=== PATIENT | female | born 1990 | race Caucasian/White ===

== ENCOUNTER 2017-07-27 19:25 | Emergency (ER) | payer MEDICAID ==
[~2017-07-27] VITALS: Ht 167.6 cm; Wt 87.7 kg
[~2017-07-27 19:25] MED LIST: MOTRIN 600600 MG/TAB PO; PERCOCET 325 MG1 TA2 PO; PRENATAL1 TA7 PO
[2017-07-27 19:29] VITALS: TEMP 98.1
[2017-07-27 21:09] VITALS: BP 111/81; PULSE 67
== END 2017-07-27 21:10 | disposition home or self-care (01) ==
LOC: COL.ER 19:25
DX: K21.9 Gastro-esophageal reflux disease without esophagitis (principal)

== ENCOUNTER 2018-09-08 16:11 | Emergency (ER) | payer MEDICAID ==
[~2018-09-08] VITALS: Ht 167.6 cm; Wt 87.1 kg
[2018-09-08 16:21] VITALS: BP 123/79; TEMP 98.1
[2018-09-08] MEDS ORDERED: [UNRECOGNIZED DRUG - REMARK] (16:43)
[2018-09-08 18:10] VITALS: PULSE 72
== END 2018-09-08 18:11 | disposition home or self-care (01) ==
LOC: COL.ER 16:11
DX: J11.1 Influenza due to unidentified influenza virus with other respiratory manifestations (principal); K21.9 Gastro-esophageal reflux disease without esophagitis

== ENCOUNTER 2018-09-11 10:41 | Emergency (ER) | payer MEDICAID ==
[~2018-09-11] VITALS: Ht 167.6 cm; Wt 86.8 kg
[~2018-09-11 10:41] MED LIST changes: +[UNRECOGNIZED DRUG - REMARK]
[2018-09-11 10:47] VITALS: TEMP 98.1
[2018-09-11] MEDS ORDERED: ADVIL200 MG PO (10:55)
[2018-09-11] MEDS ORDERED: TYLENOL 325MG325 MG PO (10:55)
[2018-09-11] MEDS ORDERED: PRILOSEC 20MG20 MG PO (10:56)
[2018-09-11] MEDS ORDERED: CARAFATE 1GM1 G PO (10:56)
[2018-09-11 13:06] VITALS: BP 118/74; PULSE 76
== END 2018-09-11 13:02 | disposition home or self-care (01) ==
LOC: COL.ER 10:41
DX: R51 Headache (principal); K21.9 Gastro-esophageal reflux disease without esophagitis; Z90.89 Acquired absence of other organs; Z98.890 Other specified postprocedural states
CPT/HCPCS: J1200; J1885; J2765; J7030

== ENCOUNTER 2019-07-28 18:57 | Outpatient (CLI) | payer MEDICAID ==
[~2019-07-28] VITALS: Ht 167.6 cm; Wt 105.0 kg
[~2019-07-28 18:57] MED LIST changes: +ADVIL200 MG PO; +CARAFATE 1GM1 G PO; +PRILOSEC 20MG20 MG PO; +TYLENOL 325MG325 MG PO
--- NOTE | 2019-07-28 19:00 | NUR ---
To unit for assessment of contractions, accompanied by spouse. Oriented to room, monitor plan of care.
[2019-07-28 20:20] VITALS: BP 119/78
--- NOTE | 2019-07-28 20:20 | NUR ---
Repeat SVE with no changes, no bloody show or loss of fluid. Exam discussed with pt and spouse. Off monitor.
--- NOTE | 2019-07-28 20:40 | NUR ---
discharge instructions reviewed with pt and spouse, questions invited and answered. Ambulatory off unit.
[2019-07-28 20:54] VITALS: BP 126/85; PULSE 92; TEMP 98.7
== END 2019-07-28 20:40 | disposition home or self-care (01) ==
LOC: LDRO 18:57
DX: O62.9 Abnormality of forces of labor, unspecified (principal); Z3A.36 36 weeks gestation of pregnancy

== ENCOUNTER 2019-08-17 05:26 | Inpatient (IN) | payer MEDICAID ==
[2019-08-17] VITALS (19 sets, daily range): BP systolic 102–151; BP diastolic 52–94; PULSE 64–103; TEMP 98–98.3
[~2019-08-17] VITALS: Ht 167.6 cm; Wt 106.4 kg
--- NOTE | 2019-08-17 05:35 | NUR ---
PT HERE FOR SECTION DELIVERY SCHEDULED FOR 729. ADMISSION PROCEEDURES STARTED. [facility] IVF. PERMITS. ORIENTED TO ROOM AND PLAN OF CARE
[2019-08-17 06:27] LABS: BASO % 0.4 % (0.0-2.0); EOS # 0.1 (0.0-0.7); EOS % 0.9 % (0-4.0); GRAN # 5.3 (1.4-6.5); GRAN % 65.5 % (42.2-75.2); LYMPH % 24.8 % (20.0-51.0); MEAN CELL VOLUME 85 fl (80.0-100.0); MEAN CORPUSCULAR HEMOGLOBIN 27 pg (27.0-31.0); MEAN CORPUSCULAR HGB CONC 32 g/dl (33.0-37.0); MEAN PLATELET VOLUME 10.2 fl (7.4-10.4); MONO # 0.6 (0.1-0.6); MONO % 7.5 % (1.7-9.3); PLATELET COUNT 199 K/mm3 (130-400); RED BLOOD COUNT 4.08 M/mm3 (4.10-5.30); REDCELL DISTRIBUTION WIDTH-CV 14.2 % (11.5-14.5)
[2019-08-17] MEDS ORDERED: PRENATA1 CTB PO (06:32)
[2019-08-17 06:40] LABS: HEMATOCRIT 34.5 % (37.0-47.0)
[2019-08-18 02:40] VITALS: BP 114/79; PULSE 70; TEMP 98.8
[2019-08-18 07:37] VITALS: BP 114/64; PULSE 76; TEMP 98.1
[2019-08-18] MEDS ORDERED: IBU600 MG PO (08:29)
[2019-08-18] MEDS ORDERED: PERCOCET 325 MG1 TA2 PO (08:30)
--- NOTE | 2019-08-18 11:18 | NUR ---
Initial visit; Parents and extended family thanked [facility] for offering congratulations and God's blessings for the of their daughter. [facility] thanked family for choosing [facility].
[2019-08-18 16:02] VITALS: BP 104/63; PULSE 76; TEMP 98.1
[2019-08-18 21:25] VITALS: BP 114/66; PULSE 86; TEMP 98.4
[2019-08-19 08:13] VITALS: BP 122/77; PULSE 85; TEMP 97.9
== END 2019-08-19 11:45 | disposition home or self-care (01) | DRG 788 ==
LOC: OB 05:26
PROVIDERS: ADMIT Obstetrics & Gynecology
PROC: 10D00Z1 Extraction of Products of Conception, Low, Open Approach (ICD-10-PCS; principal; 2019-08-17)
DX: O34.211 Maternal care for low transverse scar from previous cesarean delivery (principal); Z3A.39 39 weeks gestation of pregnancy; Z37.0 Single live birth; Z87.11 Personal history of peptic ulcer disease; Z90.49 Acquired absence of other specified parts of digestive tract; Z88.1 Allergy status to other antibiotic agents
CPT/HCPCS: J0690; J1885; J2370; J2405; J2590; J3010; J7120

== ENCOUNTER 2022-02-12 07:33 | Outpatient (CLI) | payer MEDICAID ==
[~2022-02-12] VITALS: Ht 167.6 cm; Wt 97.9 kg
[~2022-02-12 07:33] MED LIST changes: +IBU600 MG PO; +PRENATA1 CTB PO
[2022-02-12] MEDS ORDERED: EXCEDRIN1 TAB PO (08:09)
[2022-02-12 08:10] VITALS: BP 118/79; PULSE 66; TEMP 97.9
[2022-02-12 08:55] VITALS: BP 106/68; PULSE 66
[2022-02-12 09:20] LABS: GLUCOSE,CSF 63 mg/dL (40-70); TOTAL PROTEIN,CSF 22 mg/dL (15-45)
[2022-02-12 09:45] VITALS: BP 112/73; PULSE 81
[2022-02-12 10:20] LABS: CSF COLOR COLORLESS
[2022-02-12 10:21] LABS: CSF APPEARANCE CLEAR
[2022-02-12 10:27] LABS: CSF MONONUCLEAR 100 % (70-100); CSF POLYMORPHONUCLEAR 0 % (0-6); CSF RBC < 1 /mm3 (0-0)
[2022-02-12 10:45] VITALS: BP 100/74; PULSE 75
--- NOTE | 2022-02-12 10:55 | NUR ---
Discharge education given to pt, pt verbalizes understanding. Pt escorted to exit via wheelchair.
== END 2022-02-12 10:55 | disposition home or self-care (01) ==
LOC: COL.RAD 07:33
PROVIDERS: Psychiatry & Neurology Neurology
DX: R43.2 Parageusia (principal); R44.2 Other hallucinations; G43.009 Migraine without aura, not intractable, without status migrainosus